=== PATIENT | male | born 1975 | race Caucasian/White ===

== ENCOUNTER 2016-07-17 15:37 | Emergency (ER) | payer SELFPAY ==
[2016-07-17 16:12] VITALS: BP 158/92
[2016-07-17] MEDS ORDERED: DIPH/PERTUSS(ACELL)/TETANUS VAC/PF 0.5 ML SYR (>=10YO) IM ONE (16:52)
--- NOTE | 2016-07-17 16:54 | ER Document Report ---
ED Medical Screen (RME) - General Chief Complaint: Finger Injury Stated Complaint: LEFT HAND INJURY Time seen by provider: 16:53 Mode of Arrival: Ambulatory Information source: Patient Notes: 40-year-old male with a thin avulsion third left fingertip on the palmar aspect with a razor blade at 3:30 PM. Tetanus is not current. I have greeted and performed a rapid initial assessment of this patient. A comprehensive ED assessment, evaluation of the patient, analysis of test results , and completion of the medical decision making process will be conducted by additional ED providers. TRAVEL OUTSIDE OF THE [place] IN LAST 30 DAYS: No - Related Data Allergies/Adverse Reactions: No Known Allergies Allergy (Unverified 10/01/11 18:00) Past Medical History - Past Medical History Cardiac Medical History: Reports: Hx Hypertension Pulmonary Medical History: Reports: Hx COPD - Immunizations Hx Diphtheria, Pertussis, Tetanus Vaccination: Yes Physical Exam - Vital signs Vitals: Temp Pulse Resp BP Pulse Ox 98.3 F 90 20 158/92 H 97 07/17/16 16:11 07/17/16 16:11 07/17/16 16:11 07/17/16 16:11 07/17/16 16:11 Course - Vital Signs Vital signs: Temp Pulse Resp BP Pulse Ox 98.3 F 90 20 158/92 H 97 07/17/16 16:11 07/17/16 16:11 07/17/16 16:11 07/17/16 16:11 07/17/16 16:11
--- NOTE | 2016-07-17 18:39 | ER Document Report ---
HPI - HPI Patient complains to provider of: finger laceration Onset: This afternoon Onset/Duration: Sudden Quality of pain: Achy Pain Level: 3 Context: Patient states that he cut the tip of his left third finger with a razor blade today. Patient complains of continued bleeding from wound. Associated Symptoms: Other - Finger laceration Exacerbated by: Denies Relieved by: Denies Similar symptoms previously: Yes Recently seen / treated by doctor: No - ROS ROS below otherwise negative: Yes Systems Reviewed and Negative: Yes All other systems reviewed and negative - CONSTITUTIONAL Constitutional: DENIES: Fever - DERM Skin Color: Normal Skin Problems: Laceration Past Medical History - General Information source: Patient - Social History Smoking Status: Current Every Day Smoker Chew tobacco use (# tins/day): No Frequency of alcohol use: Occasional Drug Abuse: None Occupation: [employer] Lives with: Family Family History: Reviewed & Not Pertinent Patient has suicidal ideation: No Patient has homicidal ideation: No - Past Medical History Cardiac Medical History: Reports: Hx Hypertension Pulmonary Medical History: Reports: Hx COPD Renal/ Medical History: Denies: Hx Peritoneal Dialysis Past Surgical History: Reports: Hx Orthopedic Surgery - Immunizations Hx Diphtheria, Pertussis, Tetanus Vaccination: Yes Vertical Provider Document - CONSTITUTIONAL Agree With Documented VS: Yes Exam Limitations: No Limitations General Appearance: WD/WN, No Apparent Distress - INFECTION CONTROL TRAVEL OUTSIDE OF THE [place] IN LAST 30 DAYS: No - HEENT HEENT: Atraumatic, Normocephalic - NECK Neck: Normal Inspection - RESPIRATORY Respiratory: No Respiratory Distress O2 Sat by Pulse Oximetry: 97 - CARDIOVASCULAR Pulses: Normal: Radial - MUSCULOSKELETAL/EXTREMETIES Musculoskeletal/Extremeties: MAEW, FROM - NEURO Level of Consciousness: Awake, Alert, Appropriate Motor/Sensory: No Motor Deficit - DERM Integumentary: Warm, Dry, Laceration - Avulsion laceration to left third finger tip, bleeding controlled with pressure. Course - Re-evaluation Re-evalutation: 07/17/16 Bleeding stopped after Gelfoam application. - Vital Signs Vital signs: Temp Pulse Resp BP Pulse Ox 98.3 F 90 20 158/92 H 97 07/17/16 16:11 07/17/16 16:11 07/17/16 16:11 07/17/16 16:11 07/17/16 16:11 Discharge - Discharge Clinical Impression: Avulsion of skin Condition: Stable Disposition: HOME, SELF-CARE Instructions: Non-Sutured Laceration ([facility]), Tetanus Immunization Given ([facility]) Additional Instructions: Return immediately for any new or worsening symptoms Followup with your primary care provider, call tomorrow to make a followup appointment Keep dressing in place for at least 2 days. Forms: Elevated Blood Pressure Referrals: WENDY DODSON MD [Primary Care Provider] - Follow up as needed
== END 2016-07-17 19:00 | disposition home or self-care (01) ==
LOC: ER 15:37
DX: S61.213A Laceration without foreign body of left middle finger without damage to nail, initial encounter (principal); W45.8XXA Other foreign body or object entering through skin, initial encounter; Y93.E9 Activity, other interior property and clothing maintenance; Y92.009 Unspecified place in unspecified non-institutional (private) residence as the place of occurrence of the external cause; F17.200 Nicotine dependence, unspecified, uncomplicated; J44.9 Chronic obstructive pulmonary disease, unspecified; I10 Essential (primary) hypertension
CPT/HCPCS: 90471; 90715; 99282